=== PATIENT | female | born 1985 | race African-American/Black ===

== ENCOUNTER 2016-07-20 15:11 | Emergency (ER) | payer OTHER ==
[~2016-07-20] VITALS: Ht 162.6 cm; Wt 79.4 kg
[2016-07-20] MEDS ORDERED: NS 1,000 ML IV ONE (16:30)
[2016-07-20] MEDS ORDERED: METOCLOPRAMIDE INJ 10MG/2ML VIAL (J2765) IV ONE (16:30)
[2016-07-20 16:43] LABS: BASO % 0.4 % (0.0-1.0); EOS # 0.3 K/mm3 (0.0-0.50); LARGE UNSTAINED CELL # 0.1 K/mm3 (0.0-0.4); LARGE UNSTAINED CELL % 1.6 % (0.0-4.0); LYMPH # 2.7 K/mm3 (1.5-6.5); LYMPH % 29.5 % (24.0-44.0); MEAN CORPUSCULAR HEMOGLOBIN 30.8 pg (27.0-33.0); MEAN CORPUSCULAR HGB CONC 34.1 g/dl (32.0-36.5); MEAN CORPUSCULAR VOLUME 90.2 fl (80.0-96.0); MONO # 0.4 K/mm3 (0.0-0.8); MONO % 4.4 % (0.0-5.0); NEUTROPHILS # 5.7 K/mm3 (1.8-7.7); NEUTROPHILS % 61.2 % (36.0-66.0); PLATELET COUNT, AUTOMATED 281 k/mm3 (150-450); RED CELL DISTRIBUTION WIDTH 11.8 % (11.5-14.5); WHITE BLOOD COUNT 9.2 K/mm3 (4.0-10.0)
[2016-07-20 17:16] LABS: ALBUMIN 4.1 GM/DL (3.2-5.2); ALKALINE PHOSPHATASE 60 U/L (45-117); ALT/SGPT 53 U/L (12-78); ANION GAP 7 MEQ/L (8-16); AST/SGOT 22 U/L (15-37); BILIRUBIN,TOTAL 0.5 MG/DL (0.2-1.0); BLOOD UREA NITROGEN 8 MG/DL (7-18); CALCIUM LEVEL 8.8 MG/DL (8.5-10.1); CARBON DIOXIDE LEVEL 27 MEQ/L (21-32); CHLORIDE LEVEL 105 MEQ/L (98-107); CREATININE FOR GFR 0.76 MG/DL (0.55-1.02); GLOMERULAR FILTRATION RATE > 60.0 (>60); GLUCOSE, FASTING 77 MG/DL (70-105); HCG, SERUM QUANTITATIVE 17 MIU/ML; POTASSIUM SERUM 3.7 MEQ/L (3.5-5.1); SODIUM LEVEL 139 MEQ/L (136-145); TOTAL PROTEIN 8.2 GM/DL (6.4-8.2)
--- NOTE | 2016-07-20 17:25 | REP ---
Clinical: Vaginal bleeding for dating and viability. Technique: Transabdominal and transvaginal first trimester obstetrical ultrasound with color Doppler evaluation. Findings: Anteverted heterogeneous uterus measures 8.9 x 4.2 x 5.4 cm the endometrial complex is heterogeneous and thickened to 20 mm suggesting decidual reaction and possible hemorrhagic debris. No intrauterine identified. Maternal ovaries are normal in appearance and vascularity without torsion. Right ovary measures 2.2 x 1.8 x 1.6 cm; RI equal 0.36. Left ovary measures 2.0 x 1.3 x 1.5 cm; RI equal 0.81. No pelvic mass lesion. Trace fluid. Impression: Thickened heterogeneous endometrium without intrauterine . Differential diagnosis includes early intrauterine with decidual reaction, spontaneous , and less likely ectopic cannot be excluded. Correlation with serial HCG levels and repeat ultrasound as necessary. Signed by Pete Love MD 07/20/2016 05:16 P
[2016-07-20] MEDS ORDERED: REGL10TA6 PO (17:45)
[2016-07-20 17:55] VITALS: BP 105/65
== END 2016-07-20 18:00 | disposition home or self-care (01) ==
LOC: M ED 17:23
DX: N93.9 Abnormal uterine and vaginal bleeding, unspecified (principal); Z32.01 Encounter for pregnancy test, result positive
CPT/HCPCS: 76801; 76817; 80053; 81001; 83690; 84702; 85025; 86850; 86900; 86901; 87086; 96361; 96374; 99282; J2765